=== PATIENT | female | born 1925 | race Caucasian/White ===

== ENCOUNTER 2016-11-04 15:45 | Emergency (ER) | payer MEDICARE, BC ==
[2016-11-04] MEDS ORDERED: Sodium Chloride 0.9% 10 ML Syringe FLUSH PRN ×2 (16:44→17:53)
[2016-11-04] MEDS ORDERED: HYDROmorphone 0.5 MG/0.5 ML Syringe IVPUSH ONE (16:44)
[2016-11-04] MEDS ORDERED: Sodium Chloride 0.9% 1,000 ML IV SCH (16:45)
--- NOTE | 2016-11-04 16:50 | EDM.PDOC ---
<OfficerAlban - Last Filed: 11/04/16 16:47> ED HPI GENERAL MEDICAL PROBLEM - General Chief Complaint: Abdominal Pain Stated Complaint: ABDOMINAL PAIN Time Seen by Provider: 11/04/16 16:40 Source of Information: Reports: Patient, Provider, RN Notes Reviewed History Limitations: Reports: No Limitations - History of Present Illness INITIAL COMMENTS - FREE TEXT/NARRATIVE: 89-year-old female sent over from clinic for concern of bowel obstruction, she does have a significant ventral hernia which has required repair multiple times presented to clinic today with abdominal pain that started this morning and has progressively gotten worse she is not nauseated and is not passing gas initial evaluation in clinic showed an x-ray with multiple air-fluid levels concern for early bowel obstruction, discussed case with her primary care provider would like to have further evaluation in the emergency department including CAT scan which I agreed ABDOMIN Pain Score (Numeric/FACES): 2 - Related Data Allergies Allergy/AdvReac Type Severity Reaction Status Date / Time Penicillins Allergy Redness Verified 11/04/16 16:12 povidone-iodine Allergy Redness Verified 11/04/16 16:12 [From Betadine] soap [From Betadine] Allergy Redness Verified 11/04/16 16:12 Past Medical History HEENT History: Reports: Cataract, Impaired Vision, Macular Degeneration Cardiovascular History: Reports: Blood Clots/VTE/DVT, High Cholesterol, Hypertension Genitourinary History: Reports: Other (See Below) Other Genitourinary History: 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: Reports: Endocrine/Metabolic History: Reports: Diabetes, Type II, Hypothyroidism - Past Surgical History HEENT Surgical History: Reports: Cataract Surgery Other Cardiovascular Surgeries/Procedures: EDEMA GI Surgical History: Reports: Appendectomy, Cholecystectomy, Colonoscopy, Hernia Repair/Other, Small Bowel Female Surgical History: Reports: Hysterectomy Musculoskeletal Surgical History: Reports: Knee Replacement Social & Family History - Tobacco Use Smoking Status *Q: Never Smoker - Recreational Drug Use Recreational Drug Use: No ED ROS GENERAL - Review of Systems Review Of Systems: See Below Constitutional: Reports: No Symptoms HEENT: Reports: No Symptoms Respiratory: Reports: No Symptoms Cardiovascular: Reports: No Symptoms GI/Abdominal: Reports: Abdominal Pain. Denies: Flatus, Nausea, Vomiting : Reports: No Symptoms Musculoskeletal: Reports: No Symptoms ED EXAM, GI/ABD - Physical Exam Exam: See Below Exam Limited By: No Limitations General Appearance: Alert, WD/WN, No Apparent Distress Neck: Normal Inspection, Supple, Non-Tender, Full Range of Motion Respiratory/Chest: No Respiratory Distress, Lungs Clear, Normal Breath Sounds, No Accessory Muscle Use Cardiovascular: Regular Rate, Rhythm, No Murmur GI/Abdominal Exam: Normal Bowel Sounds, Soft, Tender (Right upper quadrant), Hernia (Large ventral hernia) Course - Vital Signs Last Recorded V/S: Last Vital Signs Temp 36.6 C 11/04/16 16:10 Pulse 67 11/04/16 17:49 Resp 16 11/04/16 16:10 BP 160/74 H 11/04/16 17:49 Pulse Ox 96 11/04/16 17:49 - Orders/Labs/Meds Orders: Active Orders 24 hr Category Date Time Status Peripheral IV Care [RC] . DIRECTED Care 11/04/16 16:45 Active Abdomen Pelvis w Cont [CT] Urgent Exams 11/04/16 16:44 Taken Iopamidol [Isovue-300 (61%)] Med 11/04/16 18:00 Active 117 ml IV . DIRECTED Sodium Chloride 0.9% [Normal Saline] 1,000 ml Med 11/04/16 16:45 Active IV ASDIRECTED Sodium Chloride 0.9% [Saline Flush] Med 11/04/16 16:44 Active 10 ml FLUSH ASDIRECTED PRN Sodium Chloride 0.9% [Saline Flush] Med 11/04/16 17:53 Active 10 ml FLUSH ONETIME PRN Peripheral IV Insertion Adult [OM.PC] Urgent Oth 11/04/16 16:44 Ordered Medication Orders Sodium Chloride (Normal Saline) 1,000 mls @ 500 mls/hr IV ASDIRECTED ALINA Last Admin: 11/04/16 16:59 Dose: 500 mls/hr Iopamidol (Isovue-300 (61%)) 117 ml IV . DIRECTED ALINA Last Admin: 11/04/16 18:12 Dose: 150 ml Sodium Chloride (Saline Flush) 10 ml FLUSH ASDIRECTED PRN PRN Reason: Keep Vein Open Last Admin: 11/04/16 16:59 Dose: 10 ml Sodium Chloride (Saline Flush) 10 ml FLUSH ONETIME PRN PRN Reason: PER RADIOLOGY PROTOCOL Last Admin: 11/04/16 18:12 Dose: 10 ml Labs: Laboratory Tests 11/04/16 11/04/16 11/04/16 Range/Units 16:00 16:00 16:00 WBC 12.4 H (4.5-11.0) K/uL RBC 4.35 (3.30-5.50) M/uL Hgb 13.2 (12.0-15.0) g/dL Hct 40.6 (36.0-48.0) % MCV 93 (80-98) fL MCH 30 (27-31) pg MCHC 33 (32-36) % Plt Count 187 (150-400) K/uL Neut % (Auto) 77 H (36-66) % Lymph % (Auto) 15 L (24-44) % [place] % (Auto) 6 (2-6) % Eos % (Auto) 2 (2-4) % Baso % (Auto) 1 (0-1) % Sodium 143 (140-148) mmol/L Potassium 3.7 (3.6-5.2) mmol/L Chloride 105 (100-108) mmol/L Carbon Dioxide 32 (21-32) mmol/L Anion Gap 6.5 (5.0-14.0) mmol/L BUN 20 H (7-18) mg/dL Creatinine 0.9 (0.6-1.0) mg/dL Est Cr Clr Drug Dosing 32.75 mL/min Estimated GFR (MDRD) 59 L (>60) Glucose 103 (74-106) mg/dL Lactic Acid 1.1 (0.4-2.0) mmol/L Calcium 9.6 (8.5-10.1) mg/dL Total Bilirubin 0.2 (0.2-1.0) mg/dL AST 15 (15-37) U/L ALT 16 (12-78) U/L Alkaline Phosphatase 92 (46-116) U/L Total Protein 6.9 (6.4-8.2) g/dL Albumin 3.3 L (3.4-5.0) g/dL Globulin 3.6 H (2.3-3.5) g/dL Albumin/Globulin Ratio 0.9 L (1.2-2.2) Urine Color Urine Appearance Urine pH (4.5-8.0) Ur Specific [place] (1.008-1.030) Urine Protein (NEGATIVE) mg/dL Urine Glucose (UA) (NEGATIVE) mg/dL Urine Ketones (NEGATIVE) mg/dL Urine Occult Blood (NEGATIVE) Urine Nitrite (NEGATIVE) Urine Bilirubin (NEGATIVE) Urine Urobilinogen (NORMAL) mg/dL Ur Leukocyte Esterase (NEGATIVE) Urine RBC (0-5) Urine WBC (0-5) Ur Epithelial Cells Amorphous Sediment Urine Bacteria Urine Mucus 11/04/16 Range/Units 17:05 WBC (4.5-11.0) K/uL RBC (3.30-5.50) M/uL Hgb (12.0-15.0) g/dL Hct (36.0-48.0) % MCV (80-98) fL MCH (27-31) pg MCHC (32-36) % Plt Count (150-400) K/uL Neut % (Auto) (36-66) % Lymph % (Auto) (24-44) % [place] % (Auto) (2-6) % Eos % (Auto) (2-4) % Baso % (Auto) (0-1) % Sodium (140-148) mmol/L Potassium (3.6-5.2) mmol/L Chloride (100-108) mmol/L Carbon Dioxide (21-32) mmol/L Anion Gap (5.0-14.0) mmol/L BUN (7-18) mg/dL Creatinine (0.6-1.0) mg/dL Est Cr Clr Drug Dosing mL/min Estimated GFR (MDRD) (>60) Glucose (74-106) mg/dL Lactic Acid (0.4-2.0) mmol/L Calcium (8.5-10.1) mg/dL Total Bilirubin (0.2-1.0) mg/dL AST (15-37) U/L ALT (12-78) U/L Alkaline Phosphatase (46-116) U/L Total Protein (6.4-8.2) g/dL Albumin (3.4-5.0) g/dL Globulin (2.3-3.5) g/dL Albumin/Globulin Ratio (1.2-2.2) Urine Color Yellow Urine Appearance Clear Urine pH 7.0 (4.5-8.0) Ur Specific [place] 1.010 (1.008-1.030) Urine Protein Negative (NEGATIVE) mg/dL Urine Glucose (UA) Normal (NEGATIVE) mg/dL Urine Ketones Negative (NEGATIVE) mg/dL Urine Occult Blood Negative (NEGATIVE) Urine Nitrite Negative (NEGATIVE) Urine Bilirubin Negative (NEGATIVE) Urine Urobilinogen Normal (NORMAL) mg/dL Ur Leukocyte Esterase Negative (NEGATIVE) Urine RBC 0-5 (0-5) Urine WBC 5-10 H (0-5) Ur Epithelial Cells Few Amorphous Sediment Few Urine Bacteria Not seen Urine Mucus Few Meds: Medications Generic Name Dose Route Start Last Admin Trade Name Freq PRN Reason Stop Dose Admin Sodium Chloride 1,000 mls @ 500 mls/hr 11/04/16 16:45 11/04/16 16:59 Normal Saline IV 500 mls/hr ASDIRECTED ALINA Administration Iopamidol 117 ml 11/04/16 18:00 11/04/16 18:12 Isovue-300 (61%) IV 150 ml . DIRECTED ALINA Administration Sodium Chloride 10 ml 11/04/16 16:44 11/04/16 16:59 Saline Flush FLUSH 10 ml ASDIRECTED PRN Administration Keep Vein Open Sodium Chloride 10 ml 11/04/16 17:53 11/04/16 18:12 Saline Flush FLUSH 10 ml ONETIME PRN Administration PER RADIOLOGY PROTOCOL Discontinued Medications Generic Name Dose Route Start Last Admin Trade Name Freq PRN Reason Stop Dose Admin Hydromorphone HCl 0.5 mg 11/04/16 16:44 11/04/16 19:26 Dilaudid IVPUSH 11/04/16 16:45 Not Given ONETIME ONE Sodium Chloride 75 mls @ 3 mls/sec 11/04/16 17:53 11/04/16 18:12 Normal Saline IV 11/04/16 17:54 3 mls/sec ONETIME ONE Administration Departure - Departure Disposition: Home, Self-Care 01 Clinical Impression: Closed fracture of thoracic vertebral body - Discharge Information Forms: ED Department Discharge Additional Instructions: Continue to use [id number] pain meds as we discussed and you probably continue to have pain for several weeks but this should eventually maritza and he should do well. If you suddenly had pain going down her legs or any weakness he should follow-up in the emergency room immediately. <Bentley Bolden - Last Filed: 11/04/16 20:04> Course - Radiology Interpretation Free Text/Narrative:: CT results is showing a T11 fracture that is nondisplaced. Patient fell 2 weeks ago and has been having pain that does localize to this area on examination. I suspect the bowel troubles that she's having right now related to her pain she may have a little ileus going on but nothing acute as far as her abdomen was seen on CT. We will be discharging her and she'll continue use [id number] pain meds for pain. Departure - Departure Time of Disposition: 20:03 Condition: Good
[2016-11-04 17:50] VITALS: BP 160/74
[2016-11-04] MEDS ORDERED: Sodium Chloride 0.9% 75 ML IV ONE (17:53)
[2016-11-04] MEDS ORDERED: Iopamidol 612 MG/ML 150 ML Bottle IV SCH (18:00)
== END 2016-11-04 20:15 | disposition home or self-care (01) ==
LOC: JP.ED 15:45
DX: S22.081A Stable burst fracture of T11-T12 vertebra, initial encounter for closed fracture (principal); E78.00 Pure hypercholesterolemia, unspecified; I10 Essential (primary) hypertension; E11.9 Type 2 diabetes mellitus without complications; E03.9 Hypothyroidism, unspecified; Z98.49 Cataract extraction status, unspecified eye; Z98.890 Other specified postprocedural states; Z96.659 Presence of unspecified artificial knee joint; Z90.710 Acquired absence of both cervix and uterus; Z86.718 Personal history of other venous thrombosis and embolism; Z88.0 Allergy status to penicillin; Z91.09 Other allergy status, other than to drugs and biological substances; W19.XXXA Unspecified fall, initial encounter
CPT/HCPCS: 36415; 74177; 80053; 81001; 83605; 85025; 85610; 96360; 96361; 99284; J7030; J7040; J7050